=== PATIENT | male | born 1975 | race Caucasian/White ===

== ENCOUNTER 2024-03-11 10:12 | Emergency (ER) | payer OTHER, SELFPAY ==
--- NOTE | 2024-03-11 10:19 | XR_ITS ---
WS: [id number] XR chest 1V portable [id number] REASON FOR EXAM: dyspnea/cough FINDINGS: The heart and mediastinum are within normal limits. 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 No acute pulmonary parenchymal or pleural findings. No lung nodule or lung mass. Bony thorax is intact with mild degenerative spondylosis in the thoracic spine. XR/XR chest 1V portable [id number] IMPRESSION: No acute chest abnormality.
--- NOTE | 2024-03-11 10:19 | ECG_ITS ---
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 Measurements Intervals [place] Rate: 166 P: 0 IN: 0 QRS: 42 QRSD: 85 T: 148 QT: 260 QTc: 432 Interpretive Statements ATRIAL FIBRILLATION WITH RAPID VENTRICULAR RESPONSE NONSPECIFIC ST & T-WAVE ABNORMALITY CRITICAL TEST RESULT No previous ECG available for comparison Electronically Signed On 03-13-2024 00:03:38 GEEK SQUAD MANAGER by Antonia Larios M.D. [id number]
[2024-03-11 10:25] VITALS: BP 96/65; PULSE 145; TEMP 36.8; O2SAT 97; BMI 40.6
[2024-03-11 10:45] VITALS: BP 112/75; PULSE 121; O2SAT 95
--- NOTE | 2024-03-11 10:46 | W.ED.ARRPALP ---
HPI - Arrhythmia/Palpitations General: Chief Complaint: Arrhythmia/Palpitations Stated Complaint: fast heart rate Time Seen by Provider: 03/11/24 10:36 History of Present Illness: 48-year-old male presents to the emergency room complaining of rapid heart rate on being irregular. Patient has a known history of atrial fibrillation he is on apixaban and metoprolol takes flecainide for breakthrough unfortunately did not have any flecainide with him. 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 He describes a mild chest soreness but no sharp pain. I did recently switch him from diltiazem to metoprolol. He sees a internet marketing specialist in [place] Related Data Home Medications Medication Instructions Recorded Confirmed albuterol sulfate 90 mcg/actuation 2 puff inhalation Q4H PRN 03/11/24 03/11/24 aerosol inhaler (Ventolin HFA) Shortness Of Breath apixaban 5 mg tablet (Eliquis) 5 mg PO BID 03/11/24 03/11/24 atorvastatin 20 mg tablet 20 mg PO DAILY 03/11/24 03/11/24 flecainide 50 mg tablet 50 mg PO DAILY PRN Atrial 03/11/24 03/11/24 Fibrillation fluticasone propionate 50 2 spray intranasal DAILY PRN 03/11/24 03/11/24 mcg/actuation nasal allergies spray,suspension losartan 25 mg tablet 25 mg PO DAILY 03/11/24 03/11/24 metformin 500 mg tablet,extended 500 mg PO QAM 03/11/24 03/11/24 release 24 hr metoprolol succinate 50 mg 50 mg PO DAILY 03/11/24 03/11/24 tablet,extended release 24 hr Previous Rx's Medication Instructions Recorded flecainide 50 mg tablet 50 mg PO Q8H PRN Palpitations 03/11/24 rapid heart rate #10 tabs Allergies Allergy/AdvReac Type Severity Reaction Status Date / Time aluminum hydroxide Allergy ADR-Gastrointestinal Verified 03/11/24 10:36 [From Mylanta] Upset calcium carbonate Allergy ADR-Gastrointestinal Verified 03/11/24 10:36 [From Mylanta] Upset magnesium [From Mylanta] Allergy ADR-Gastrointestinal Verified 03/11/24 10:36 Upset magnesium hydroxide Allergy ADR-Gastrointestinal Verified 03/11/24 10:36 [From Mylanta] Upset simethicone [From Mylanta] Allergy ADR-Gastrointestinal Verified 03/11/24 10:36 Upset Review of Systems Const: Denies: fever(s) or chills Card: Reports: palpitations and irregular heart rhythm; Denies: chest pain, edema or swelling of feet/ankles Resp: Denies: dyspnea GI: Denies: abdominal pain : Denies: dysuria, urinary frequency or urinary urgency Musc: Denies: neck pain or back pain Skin/Breast: Denies: rash PFSH ED PFSH: Medical History (Updated 03/11/24 @ 11:28 by Binh Suazo DO) Atrial fibrillation Diabetes mellitus Hypertension Physical Exam Const: COMMON NORMALS: no acute distress GENERAL APPEARANCE: cooperative and comfortable ORIENTATION/CONSCIOUSNESS: Yes awake, Yes oriented to person, Yes oriented to place and Yes oriented to time HENMT: COMMON NORMALS: normocephalic, atraumatic and hearing grossly normal bilaterally HEAD & SCALP: normocephalic and atraumatic Resp: COMMON NORMALS: normal respiratory effort, No retractions, No use of accessory muscles and clear to auscultation bilaterally AUSCULTATION: clear to auscultation bilaterally Cardio: COMMON NORMALS: No murmurs present (Cardio) RATE: tachycardic RHYTHM: abnormal rhythm irregularly irregular GI: COMMON NORMALS: Soft to palpation and No hepatosplenomegaly present AUSCULTATION: Yes normoactive bowel sounds PALPATION: Yes Soft to palpation, No Tenderness to palpation present (GI), No Guarding due to palpation present (GI) and Yes No hepatosplenomegaly present Extremity: COMMON NORMALS: normal to inspection, capillary refill normal, no clubbing, cyanosis or edema, no calf tenderness and no pedal edema Neuro: SENSORIUM/ORIENTATION: Yes oriented to person, Yes oriented to place and Yes oriented to time Skin: COMMON NORMALS: no rashes or lesions noted GENERAL SKIN EXAM: no rashes or lesions noted Course Vital Signs: Vital signs: Vital Signs Temperature 98.2 F 03/11/24 10:25 Pulse Rate 97 03/11/24 11:45 Respiratory Rate 15 03/11/24 11:30 Blood Pressure 101/77 03/11/24 11:45 Pulse Oximetry 94 03/11/24 11:45 Oxygen Delivery Me thod Room Air 03/11/24 11:30 MDM - Arrhythmia/Palpitations Medical Decision Making Patient converted back to sinus rhythm spontaneously before we are able to institute medicines for the A-fib when he first arrived to use at a heart rate in the 140s and 50s we had ordered Cardizem but before he was given he converted back he is hovering between 90 and 100 at this point leads. Reviewed with him his medications unfortunately does not have any flecainide with him his blood pressure does not look like it will tolerate an increase in metoprolol. Will discharge him home on the same medications he is on before I wrote him a prescription for flecainide so he can have some available. He is going to have his drive him back home and then he will see his internet marketing specialist in [place]. Encouraged to contact a internet marketing specialist as soon as he is able to make a follow-up appointment preferably within the week. Medical Records I reviewed the patient's medical records. Lab Data I reviewed the patient's lab results. 03/11/24 10:40 03/11/24 10:40 Radiology Impressions Chest X-Ray 03/11/24 10:19 IMPRESSION: No acute chest abnormality. Laboratory Results WBC 9.12 10^3/uL (3.29-11.43) 03/11/24 10:40 RBC 4.83 10^6/uL (3.85-5.65) 03/11/24 10:40 Hgb 15.00 g/dL (11.27-16.99) 03/11/24 10:40 Hct 44.8 % (37-53) 03/11/24 10:40 MCV 92.8 fl (82-101) 03/11/24 10:40 MCH 31.1 pg (27-33) 03/11/24 10:40 MCHC 33.5 g/dL (30-55) 03/11/24 10:40 RDW 13.8 % (12.1-15.1) 03/11/24 10:40 Plt Count 294 10^3/cmm (157-399) 03/11/24 10:40 MPV 8.8 fL (7.4-10.4) 03/11/24 10:40 Neut % (Auto) 72.5 % 03/11/24 10:40 Lymph % (Auto) 16.6 % 03/11/24 10:40 [place] % (Auto) 8.9 % 03/11/24 10:40 Eos % (Auto) 1.1 % 03/11/24 10:40 Baso % (Auto) 0.2 % 03/11/24 10:40 Neut # (Auto) 6.62 10^3/uL (1.8-7.7) 03/11/24 10:40 Lymph # (Auto) 1.5 10^3/uL (0.8-4.8) 03/11/24 10:40 [place] # (Auto) 0.8 10^3/uL (0.2-0.9) 03/11/24 10:40 Eos # (Auto) 0.1 10^3/uL (0.0-0.8) 03/11/24 10:40 Baso # (Auto) 0.0 10^3/uL (0.0-0.1) 03/11/24 10:40 Nucleated RBC % (auto) 0 % 03/11/24 10:40 Nucleated RBCs # 0.0 /100WBC 03/11/24 10:40 Sodium 135 mmol/L (136-145) L 03/11/24 10:40 Potassium 3.7 mmol/L (3.5-5.1) 03/11/24 10:40 Chloride 96 mmol/L (98-107) L 03/11/24 10:40 Carbon Dioxide 24 mmol/L (22-29) 03/11/24 10:40 Anion Gap 18.7 (5-19) 03/11/24 10:40 BUN 12 mg/dL (6-20) 03/11/24 10:40 Creatinine 0.8 mg/dL (0.7-1.2) 03/11/24 10:40 GFR Calculation 102.3 mL/min (90-130) 03/11/24 10:40 Glucose 120 mg/dL (65-115) H 03/11/24 10:40 Calculated Osmolality 281 mOsm/kg (285-295) L 03/11/24 10:40 Lactic Acid 1.3 mmol/L (0.5-2.2) 03/11/24 10:40 Calcium 9.1 mg/dL (8.5-10.5) 03/11/24 10:40 Total Bilirubin 0.8 mg/dL (0.15-1.2) 03/11/24 10:40 AST 13 U/L (0-40) 03/11/24 10:40 ALT 12 U/L (0-41) 03/11/24 10:40 Alkaline Phosphatase 101 U/L (40-130) 03/11/24 10:40 Troponin T Baseline < 6 ng/L (0-15) 03/11/24 10:40 Total Protein 7.8 g/dL (6.6-8.7) 03/11/24 10:40 Albumin 4.2 g/dL (3.5-5.2) 03/11/24 10:40 Globulin 3.6 g/dL (1.3-4.6) 03/11/24 10:40 Lipase 32 U/L (13-60) 03/11/24 10:40 All radiology interpretation(s) finalized by discharge Discharge Plan Discharge Patient Disposition: Home Clinical Impression: Atrial fibrillation Condition: Stable Prescriptions: New flecainide 50 mg tablet 50 mg PO Q8H PRN (Reason: Palpitations rapid heart rate) Qty: 10 0RF No Action atorvastatin 20 mg tablet 20 mg PO DAILY metoprolol succinate 50 mg tablet extended release 24 hr 50 mg PO DAILY flecainide 50 mg tablet 50 mg PO DAILY PRN (Reason: Atrial Fibrillation) losartan 25 mg tablet 25 mg PO DAILY albuterol sulfate [Ventolin HFA] 90 mcg/actuation HFA aerosol inhaler 2 puff INHALATION Q4H PRN (Reason: Shortness Of Breath) fluticasone propionate 50 mcg/actuation spray,suspension 2 spray INTRANASAL DAILY PRN (Reason: allergies) metformin 500 mg tablet extended release 24 hr 500 mg PO QAM Eliquis 5 mg tablet 5 mg PO BID Discharge Orders: Discharge ED (Routine); Ordered 03/11/24 Ordered By: Binh Suazo Discharge Diet: Usual diet Discharge Activity: Resume usual activity Patient Instructions: Opioid Safety, Pain Management Activity Restrictions/Additional Instructions: Thank you for choosing [facility] for your healthcare needs today. It is very important that you follow up as instructed or that you return to the Emergency Department should you have concerns or if your condition changes or worsens in any way. You were seen in the emergency room with an episode of atrial fibrillation with rapid ventricular response. The episode self terminated and you returned to a normal sinus rhythm. Continue your current medications. If you have another episode where you feel your heart rate racing take the flecainide that you were prescribed 50 mg once. If it does not improve within an hour go to the nearest emergency room. Recommend you see your internet marketing specialist as soon as you are able once you return home. Coding Level of Care Code ED Optical Lab Technician for Michael Chavarria
[2024-03-11 10:54] LABS: Basophils % 0.2 %; Eosinophils # 0.1 10^3/uL (0.0-0.8); Eosinophils % 1.1 %; Hematocrit 44.8 % (37-53); Lymphocytes # 1.5 10^3/uL (0.8-4.8); Lymphocytes % 16.6 %; Mean Corpuscular HGB Conc 33.5 g/dL (30-55); Mean Corpuscular Hemoglobin 31.1 pg (27-33); Mean Corpuscular Volume 92.8 fl (82-101); Mean Platelet Volume 8.8 fL (7.4-10.4); Monocytes # 0.8 10^3/uL (0.2-0.9); Monocytes % 8.9 %; Neutrophils # 6.62 10^3/uL (1.8-7.7); Neutrophils % 72.5 %; Nucleated Red Blood Cells % 0 %; Platelet Count 294 10^3/cmm (157-399); Red Blood Count 4.83 10^6/uL (3.85-5.65); Red Cell Distribution Width 13.8 % (12.1-15.1); White Blood Count 9.12 10^3/uL (3.29-11.43)
[2024-03-11 11:00] VITALS: BP 132/74; PULSE 97; RESP 21; O2SAT 97
--- NOTE | 2024-03-11 11:05 | ECG_ITS ---
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
[2024-03-11 11:13] LABS: Lactic Sepsis W/Reflex 1.3 mmol/L (0.5-2.2)
[2024-03-11 11:15] VITALS: BP 107/76; PULSE 101; RESP 12; O2SAT 97
[2024-03-11 11:15] LABS: Troponin(5th) Baseline < 6 ng/L (0-15)
[2024-03-11 11:19] LABS: Lipase 32 U/L (13-60)
[2024-03-11 11:20] LABS: Alanine Aminotransferase 12 U/L (0-41); Albumin Level 4.2 g/dL (3.5-5.2); Alkaline Phosphatase 101 U/L (40-130); Anion Gap 18.7 (5-19); Aspartate Amino Transferase 13 U/L (0-40); Blood Urea Nitrogen 12 mg/dL (6-20); Calcium 9.1 mg/dL (8.5-10.5); Carbon Dioxide 24 mmol/L (22-29); Chloride 96 mmol/L (98-107); Creatinine Clr Calc Pharmacy 144.2425; Globulin 3.6 g/dL (1.3-4.6); Glomerular Filtration Rate 102.3 mL/min (90-130); Glucose 120 mg/dL (65-115); Osmolality Calculated 281 mOsm/kg (285-295); Potassium 3.7 mmol/L (3.5-5.1); Sodium 135 mmol/L (136-145); Total Bilirubin 0.8 mg/dL (0.15-1.2); Total Protein 7.8 g/dL (6.6-8.7)
--- NOTE | 2024-03-11 11:27 | PC.NURSE ---
Pt HR in 90s-100s, MD notified. EKG repeated and given to MD. Cardizem not administered and returned to pyxis.
[2024-03-11 11:30] VITALS: BP 101/77; PULSE 97; RESP 15; O2SAT 94
[2024-03-11 11:45] VITALS: BP 101/77; PULSE 97; O2SAT 94
== END 2024-03-11 11:45 | disposition home or self-care (01) ==
PROVIDERS: Emergency Provider Family Medicine
DX: I48.91 Unspecified atrial fibrillation (principal); Z79.84 Long term (current) use of oral hypoglycemic drugs; Z79.01 Long term (current) use of anticoagulants; E11.9 Type 2 diabetes mellitus without complications; I10 Essential (primary) hypertension
CPT/HCPCS: 36415; 71045; 80053; 83605; 83690; 84484; 85025; 93005; 99285